=== PATIENT | female | born 1995 | race Hispanic/Latino ===

== ENCOUNTER 2019-08-24 20:16 | Inpatient (IN) ==
--- NOTE | 2019-08-24 20:00 | PROVIDER DOCUMENTATION ---
This chart was entered by Xochilt Stringer Scribe, acting as scribe for Ra Camp MD. HPI-Female /OB/Breast - General Chief Complaint: OB-Active Labor Stated Complaint: 30+ WKS PREG/CRAMP Time Seen by Provider: 08/24/19 19:45 Source: reports: RN/MD, electric motor analyst Allergies/Adverse Reactions: Patient Allergies Allergy/AdvReac Type Severity Reaction Status Date / Time No Known Allergies Allergy Verified 04/21/19 00:54 Home Medications: Home Medication List Medication Instructions Recorded Confirmed Last Taken Type NK [No Home Medications] 04/04/19 04/21/19 Unknown History - History of Present Illness-Female /OB Nature of Presenting Problem: pt is a 23 yohf c/o active labor. pt began cramping 1 hour ago, water broke and is dontae every 3 mins. no care. pt is g2, p1. pt reports her water did break. Does patient report she is ?: Yes Onset/Duration: reports: other (today) Timing: reports: still present Context/Activities at Onset: reports: none Vaginal Bleeding Amount: None Urinary Symptoms: reports: no symptoms Related Symptoms: reports: uterine contractions, abdominal pain Associated Symptoms: reports: denies symptoms - LMP/ History Menstrual Status: currently : 2 Para: 1 Care: none Contractions/Pelvic Pain: reports: moderate Contraction Frequency (every____min): 3 Review of Systems - Adult - REVIEW OF SYSTEMS - ADULT Constitutional: reports: see HPI, other (active labor, contractions every 3 mins starting today.). denies: fever, fatique, night sweats Eyes: reports: no symptoms reported Ears, Nose, Mouth & Throat: reports: no symptoms reported Cardiovascular: reports: no symptoms reported Respiratory: reports: no symptoms reported Gastrointestinal: reports: no symptoms reported Genitourinary: reports: no symptoms reported Musculoskeletal: reports: no symptoms reported Integumentary: reports: no symptoms reported Neurological: reports: no symptoms reported Psychiatric: reports: no symptoms reported Endocrine: reports: no symptoms reported Hematologic/Lymphatic: reports: no symptoms reported Allergic/Immunologic: reports: no symptoms reported All Other Systems: Reviewed and Negative Past History - Adult - PAST MEDICAL HISTORY-ADULT Review of Records: reports: Old Records Reviewed, Nursing Assessment Review, Medications Reviewed, Social history reviewed & non-contributory. Major Childhood Illnesses: reports: denies history Cardiovascular: reports: denies history Respiratory: reports: denies history Gastrointestinal: reports: denies history Obstetrical/Gynecological: reports: denies history Genitourinary: reports: denies history Musculoskeletal: reports: denies history Neurological: reports: denies history Endocrine/Immune: reports: denies history Other Conditions: reports: denies history - PRIOR SURGERIES/PROCEDURES Surgical/Procedure History: reports: none - IMMUNIZATION STATUS Childhood Immunizations: See Nurse Assessment Flu Vaccine: See Nurse Assessment - FAMILY HISTORY Family History: reviewed, not pertinent - SOCIAL HISTORY Smoking: non-smoker Substance Use: none/never Alcohol Use Frequency: never Living Situation: family Physical Exam-General - PHYSICAL EXAM-ADULT Initial Vital Signs Reviewed: Yes - CONSTITUTIONAL General Appearance: appears well, alert, mild distress. negative: slow to respond, obtunded, combative - EYES Eyes: PERRL/EOMI, pink conjunctivae - HEAD, EARS, NOSE, MOUTH & THROAT HENMT: normocephalic/atraumatic, moist mucous membranes - NECK Neck: non-tender, full range of motion, supple, normal inspection - RESPIRATORY Respiratory: chest non-tender, lungs clear, normal breath sounds - CARDIOVASCULAR Cardiovascular: normal peripheral pulses, regular rate, rhythm - GASTROINTESTINAL (ABDOMEN) Abdominal Exam: normal bowel sounds, soft, other (gravid uterus, firm and mild tenderness suprapubic area) - GENITOURINARY Female Genitalia/Pelvic Exam: external exam normal (no meconium, no active bleeding), other (no active bleeding, cervix is dilated). negative: active bleeding, blood Rectal Exam: deferred - MUSCULOSKELETAL Back Exam: normal inspection Extremity: normal range of motion, non-tender, normal inspection - SKIN Integumentary: normal color, normal turgor, warm/dry - NEUROLOGIC Neurologic: grossly normal, no motor/sensory deficits - PSYCHIATRIC Psych/Mental Status: normal mood/affect, normal thought content, normal thought process, oriented x 3 Progress - PLAN OF CARE/RESULTS Progress/Plan/Lab Results: Vital Signs - 8 hr 08/24/19 19:28 Temperature 98.0 F Pulse Rate 69 Respiratory Rate 20 Blood Pressure 117/76 O2 Sat by Pulse Oximetry 100 Orders Category Date Time Status 0.9% Sodium Chloride Inj [Ns] 1,000 ml Med 08/24/19 19:49 Active IV 999 mls/hr - REASSESSMENT Reassessment #1 Time Reassessed: 19:59 Status: unchanged (L&D at [facility] notified, patient taken by [facility]) Departure - Departure Date of Disposition Decision: 08/24/19 Time of Disposition Decision: 19:58 DIAGNOSIS: Active labor at term Disposition: ADMITTED INPATIENT 09 Certified Medical Emergency: Emergent Condition: Stable Referrals and Follow-Ups: None,PCP [Primary Care Provider] - - Critical Care Note This patient required my direct & personal management of CC.: No Attestation - Physician/ JAVI Attestation Patient care was provided by Advanced Practice Provider:: No The physician spent face to face time with patient:: Yes Advanced Practice Provider documentation review:: Supervising physician onsite and consulted in the evaluation and care of this patient. The physician did have a face to face encounter with the patient. This chart was documented by the indicated scribe, (Xochilt Stringer, Lul) and accurately reflects the services I performed and decisions made by me, Ra Camp MD, as attested by the provider's signature.
[~2019-08-24 20:16] MED LIST: NS 1,000 ML IV ONE
[2019-08-24] MEDS: LR 1,000 ML IV SCH (20:30)
[2019-08-24] MEDS ORDERED: NEO-SYNEPHRINE ONE (21:07)
[2019-08-24] MEDS ORDERED: SODIUM CHLORIDE 0.9% 10 ML ONE ×2 (21:07→21:10)
[2019-08-24] MEDS ORDERED: NAROPIN 0.5% ONE (21:10)
[2019-08-24] MEDS ORDERED: ZOFRAN IV PRN (21:20)
[2019-08-24] MEDS ORDERED: PEPCID IV PRN (21:20)
[2019-08-24] MEDS ORDERED: AMPICILLIN 2 GM in NS 100 ML IV ONE (21:20)
[2019-08-24] MEDS ORDERED: TYLENOL PO PRN (21:20)
[2019-08-24] MEDS ORDERED: STADOL IV PRN (21:20)
[2019-08-24] MEDS ORDERED: REGLAN PO PRN (21:20)
[2019-08-24] MEDS ORDERED: KEFZOL 1 GM/D5W 1 GM/50 ML IVPB IV PRN (21:20)
[2019-08-24] MEDS ORDERED: PEPCID PO PRN ×2 (21:20)
[2019-08-24] MEDS ORDERED: XYLOCAINE-MPF 1% INJ PRN ×2 (21:24→22:27)
[2019-08-24] MEDS ORDERED: MINERAL OIL TOP PRN (21:24)
[2019-08-24] MEDS ORDERED: PITOCIN 30 UNITS/NS 30 UNIT/500 ML IV.SOLN IV SCH (21:30)
[2019-08-24] MEDS ORDERED: SODIUM CHLORIDE 0.9% INJ SCH (21:30)
[2019-08-24 21:31] LABS: BASO# 0.06 X1000 (0.0-0.2); BASO% 0.5 % (0.0-0.8); EOS# 0.15 X1000 (0.0-0.7); EOS% 1.2 % (0.0-10.0); HEMATOCRIT 39.1 % (37.0-47.0); HEMOGLOBIN 13.1 g/dL (12.0-16.0); IMM GRAN# 0.05 X1000 (0.0-0.04); IMM GRAN% 0.4 % (0.0-0.5); LYMPH% 22.7 % (20.5-51.1); MCH 28.2 PG (27-31); MCHC 33.5 g/dL (33-37); MCV 84.1 FL (81-99); MONO# 0.58 X1000 (0.11-0.59); MONO% 4.7 % (1.7-9.3); MPV 11.1 FL (7.4-10.4); NEUT# 8.69 X1000 (1.4-6.5); NEUT% 70.5 % (42.2-75.2); PLT 246 X1000 (130-400); RBC 4.65 XMIL (4.2-5.4); RDW 14.3 % (11.5-14.5); WBC 12.33 X1000 (4.8-10.8)
[2019-08-24] MEDS: PITOCIN 30 UNITS/NS 30 UNIT/500 ML IV.SOLN IV SCH (21:50)
[2019-08-24 21:51] LABS: LARGE PLATELETS OCCASIONAL; LYMPHS 28 % (21-51); MONO 4 % (1-9); SEGS 65 % (42-75)
[2019-08-24] MEDS ORDERED: CYTOTEC PO PRN (22:27)
[2019-08-24] MEDS ORDERED: PERI MEDS (DERMOPLAST/NUPERCAINAL/TUCKS) MISC PRN (22:27)
[2019-08-24] MEDS ORDERED: AMBIEN PO PRN (22:27)
[2019-08-24] MEDS ORDERED: BOOSTRIX VACCINE IM ONE (22:27)
[2019-08-24] MEDS ORDERED: HYDROXYZINE IM PRN (22:27)
[2019-08-24] MEDS ORDERED: BENADRYL PO PRN (22:27)
[2019-08-24] MEDS ORDERED: ATARAX PO PRN (22:27)
[2019-08-24] MEDS ORDERED: MINERAL OIL PO PRN (22:27)
[2019-08-24] MEDS ORDERED: PITOCIN IM PRN (22:27)
[2019-08-24] MEDS ORDERED: M-M-R II VACCINE SUBQ ONE (22:27)
[2019-08-24] MEDS ORDERED: PERCOCET-10 PO PRN (22:27)
[2019-08-24] MEDS ORDERED: PERCOCET-5 PO PRN (22:27)
[2019-08-24] MEDS ORDERED: BENADRYL IV PRN (22:27)
[2019-08-24] MEDS ORDERED: PITOCIN 20 UNITS/NS 20 UNITS/1,000 ML IV.SOLN IV SCH (22:30)
[2019-08-25] MEDS ORDERED: AMPICILLIN 1 GM in NS 50 ML IV SCH (01:21)
[2019-08-25 01:26] LABS: URINE SOURCE CATH
[2019-08-25 01:31] LABS: BILIRUBIN URINE NEGATIVE (NEGATIVE); BLOOD URINE NEGATIVE (NEGATIVE); COLOR YELLOW; GLUCOSE URINE NEGATIVE (NEGATIVE); KETONE URINE 10 mg/dL (NEGATIVE); LEUKOCYTES URINE NEGATIVE (NEGATIVE); NITRITE URINE NEGATIVE (NEGATIVE); PROTEIN URINE NEGATIVE (NEGATIVE); TURBIDITY URINE CLEAR (CLEAR); UROBILINOGEN URINE NORMAL (NORMAL)
[2019-08-25 01:51] LABS: UR AMPHETAMINES QUAL NONE DETECTED (NONE DETECT); UR BARBITUATES QUAL NONE DETECTED (NONE DETECT); UR BENZODIAZEPIN QUAL NONE DETECTED (NONE DETECT); UR CANNABINOIDS QUAL NONE DETECTED (NONE DETECT); UR COCAINE QUAL NONE DETECTED (NONE DETECT); UR METHADONE QUAL NONE DETECTED (NONE DETECT); UR OPIATES QUAL NONE DETECTED (NONE DETECT); UR OXYCODONE QUAL NONE DETECTED (NONE DETECT); UR PCP QUAL NONE DETECTED (NONE DETECT)
--- NOTE | 2019-08-25 04:27 | HISTORY AND PHYSICAL ---
CHIEF COMPLAINT: Abdominal pain. HISTORY OF PRESENT ILLNESS: The patient is a 23-year-old G2, P1, 0-0-1 at 38 weeks and 4 days who presented to Labor and Delivery with a complaint of frequent contractions. She denies any leaking fluid. She notes a small amount of vaginal bleeding. She endorses movement. She has had no care this . She is dated by an 18 week ultrasound performed in the emergency room with an estimated due date of 09/03/2019. Upon arrival, cervical exam was 4 cm dilated with a bulging bag of water. Her GBS status is unknown. Estimated due date 09/03/19 by an 18 week ultrasound. OBSTETRIC HISTORY: G1 spontaneous vaginal delivery at 40 weeks, male, 5 pounds and 11 ounces. She denies any complications (2015). G2 is current complicated by no care. GYNECOLOGIC HISTORY: She denies any history of sexually transmitted infections. She states she has had a Pap smear years ago that was normal. She denies any history of abnormal Pap smears. She was not using anything for control prior to . PAST MEDICAL HISTORY: Denies. MEDICATIONS: None. ALLERGIES: No known drug allergies. PAST SURGICAL HISTORY: Denies. SOCIAL HISTORY: She denies tobacco, alcohol, or drug use. FAMILY HISTORY: Denies. PHYSICAL EXAMINATION: VITAL SIGNS: Temperature 98 degrees Fahrenheit, pulse 69, respiratory rate 20, blood pressure 117/76, and O2 saturation 100% on room air. FHT: 120/moderate/+accel/no decel Mcnabb: Q1-2 min LABORATORY DATA: White blood cell count 12.3, hemoglobin 13.1, hematocrit 39.1, and platelets 246,000. labs pending. Blood type O positive. PHYSICAL EXAMINATION: GENERAL: Alert in moderate distress secondary to contraction pain. HEART: Regular rate and rhythm. LUNGS: Clear to auscultation bilaterally. No respiratory distress. ABDOMEN: Soft, gravid. Nontender. PELVIC: Sterile vaginal exam 4 cm with a bulging bag of water. Presentation by bedside ultrasound vertex. EXTREMITIES: No clubbing, cyanosis, or edema. ASSESSMENT AND PLAN: A 23-year-old G2, P1, 0-0-1 at 38 weeks and 4 days by T2 ultrasound presents to Labor and Delivery in labor with no care. 1. Will admit to Labor and Delivery, MF status reassuring 2. The patient may have epidural if she desires. 3. We will obtain labs. 4. We will treat GBS unknown status with ampicillin. 5. Continuous external monitoring and tocometry. 6. Anticipate vaginal delivery. 7. consult for no care [facility]
[2019-08-25] MEDS: MOTRIN PO PRN ×2 (04:30→20:43)
[2019-08-25] MEDS: LR 1,000 ML IV SCH (04:34)
--- NOTE | 2019-08-25 04:49 | OPERATIVE NOTE ---
PROCEDURE DATE: PROCEDURE: Delivery note. DESCRIPTION OF PROCEDURE: A 23-year-old G2, P1, 0-0-1 at 38w4d presented to Labor and Delivery in labor with no care. She underwent a spontaneous vaginal delivery of a vigorous, viable female infant in [place] presentation. The infant's head, shoulders and body delivered with maternal pushing effort without difficulty. Apgars were 9 and 9. She had a second-degree midline perineal laceration that was repaired with 3-0 Vicryl in the usual fashion. Placenta delivered spontaneous and was intact with 3 vessel cord. Labor was spontaneous. Anesthesia epidural. Estimated blood loss was 350 mL. Pediatric nurse in attendance. Mother stable to recovery room. [facility]
[2019-08-25 05:22] LABS: BASO# 0.04 X1000 (0.0-0.2); BASO% 0.2 % (0.0-0.8); EOS# 0.04 X1000 (0.0-0.7); EOS% 0.2 % (0.0-10.0); HEMATOCRIT 36.6 % (37.0-47.0); HEMOGLOBIN 12.3 g/dL (12.0-16.0); IMM GRAN# 0.06 X1000 (0.0-0.04); IMM GRAN% 0.3 % (0.0-0.5); LYMPH# 2.05 X1000 (1.2-3.4); LYMPH% 11.5 % (20.5-51.1); MCH 28.3 PG (27-31); MCHC 33.6 g/dL (33-37); MCV 84.3 FL (81-99); MONO# 1.18 X1000 (0.11-0.59); MONO% 6.6 % (1.7-9.3); MPV 10.9 FL (7.4-10.4); NEUT# 14.47 X1000 (1.4-6.5); NEUT% 81.2 % (42.2-75.2); PLT 258 X1000 (130-400); RBC 4.34 XMIL (4.2-5.4); RDW 14.4 % (11.5-14.5); WBC 17.84 X1000 (4.8-10.8)
--- NOTE | 2019-08-25 07:56 | OB/GYN PROGRESS NOTE ---
- Subjective Pt seen and examined. Currently w/o complaints. Pain well controlled on PO pain meds. Ambulating and urinating w/o difficulty. tolerating regular diet, denies N/V. Reports decreased lochia. +Bottle feeding. Does not desire contraception post delivery OB Physical Exam Vital Signs - 8 hr 08/25/19 04:00 08/25/19 07:23 Temperature 97.9 F 97.8 F Pulse Rate 69 65 Respiratory Rate 18 18 Blood Pressure 113/70 104/56 O2 Sat by Pulse Oximetry 98 98 - CONSTITUTIONAL General Appearance: appears well, alert, no apparent distress - RESPIRATORY Respiratory: lungs clear, normal breath sounds - CARDIOVASCULAR Cardiovascular: regular rate, rhythm - GASTROINTESTINAL (ABDOMEN) Abdominal Exam: soft (FF at umbilicus) - MUSCULOSKELETAL Extremity: non-tender, no calf tenderness Active Medications Generic Name Dose Route Start Last Admin Trade Name Freq PRN Reason Stop Dose Admin Acetaminophen 650 mg 08/24/19 21:20 Tylenol PO Q4-6H PRN PRN Headache Benzocaine 1 each 08/24/19 22:27 Pam Meds (Dermoplast/Nupercainal/Tucks) MISC 3-4XDAY PRN PRN episiotomy/hemorrhoids Butorphanol Tartrate 2 mg 08/24/19 21:20 Stadol IV PRN PRN Pain Diphenhydramine HCl 12.5 mg 08/24/19 22:27 Benadryl IV Q4H PRN PRN Itching Diphenhydramine HCl 25 mg 08/24/19 22:27 Benadryl PO Q4H PRN PRN Itching Famotidine 20 mg 08/24/19 21:20 Pepcid PO PRN PRN for c/s Famotidine 40 mg 08/24/19 21:20 Pepcid PO Q12H PRN PRN GI upset or indigestion Famotidine 20 mg 08/24/19 21:20 Pepcid IV Q12H PRN PRN GI upset or indigestion Hydroxyzine HCl 50 mg 08/24/19 22:27 Atarax PO Q3-4H PRN PRN Nausea Hydroxyzine HCl 50 mg 08/24/19 22:27 Hydroxyzine IM Q3-4H PRN PRN Nausea Ampicillin Sodium 1 gm/ Sodium 50 mls @ 100 mls/hr 08/25/19 01:21 Chloride IV Q4H PRICILLA Cefazolin Sodium/Dextrose 1 gm in 50 mls @ 100 mls/hr 08/24/19 21:20 Kefzol 1 Gm/D5w IV ONCE PRN PRN SECTION Lactated Ringer's 1,000 mls @ 0 mls/hr 08/24/19 21:30 08/25/19 04:34 Lr IV 125 mls/hr .Q0M PRICILLA Administration As Directed Oxytocin/Sodium Chloride 30 unit in 500 mls @ 0 mls/hr 08/24/19 21:30 Pitocin 30 Units/Ns IV .Q0M PRICILLA As Directed Oxytocin/Sodium Chloride 20 units in 1,000 mls @ 0 mls/hr 08/24/19 22:30 Pitocin 20 Units/Ns IV .Q0M PRICILLA As Directed Oxytocin/Sodium Chloride 30 unit in 500 mls @ 500 mls/hr 08/24/19 22:30 08/24/19 21:50 Pitocin 30 Units/Ns IV 500 mls/hr .Q1H PRICILLA Administration Ibuprofen 800 mg 08/24/19 22:27 08/25/19 04:30 Motrin PO 800 mg Q8H PRN PRN Administration cramping Lidocaine HCl 30 ml 08/24/19 21:24 Xylocaine-Mpf 1% INJ PRN PRN At bedside for delivery Lidocaine HCl 30 ml 08/24/19 22:27 Xylocaine-Mpf 1% INJ PRN PRN Perineal repair Metoclopramide HCl 10 mg 08/24/19 21:20 Reglan PO PRN PRN for c/s Mineral Oil 30 ml 08/24/19 21:24 Mineral Oil TOP PRN PRN At bedside for delivery Mineral Oil 30 ml 08/24/19 22:27 Mineral Oil PO PRN PRN Perineal massage Misoprostol 800 microgm 08/24/19 22:27 Cytotec PO PRN PRN Severe bleeding Ondansetron HCl 4 mg 08/24/19 21:20 Zofran IV PRN PRN Nausea Oxycodone/Acetaminophen 1 each 08/24/19 22:27 08/25/19 04:30 Percocet-5 PO 1 each Q3-4H PRN PRN Administration Pain (1-6 on Pain Scale) Oxycodone/Acetaminophen 1 each 08/24/19 22:27 08/25/19 07:30 Percocet-10 PO 1 each Q3-4H PRN PRN Administration Pain (7-10 on Pain Scale) Oxytocin 20 unit 08/24/19 22:27 08/25/19 04:32 Pitocin IM 20 unit PRN PRN Administration Severe bleeding Senna/Docusate Sodium 1 each 08/25/19 21:00 Pericolace PO QHS PRICILLA Sodium Chloride 5 - 10 ml 08/24/19 21:30 Sodium Chloride 0.9% INJ DIRECTED PRICILLA Zolpidem Tartrate 10 mg 08/24/19 22:27 Ambien PO HS PRN PRN Sleep Laboratory Results - last 24 hr 08/24/19 08/24/19 08/24/19 19:45 19:45 22:35 WBC 12.33 H RBC 4.65 Hgb 13.1 Hct 39.1 MCV 84.1 MCH 28.2 MCHC 33.5 RDW Std Deviation 14.3 Plt Count 246 MPV 11.1 H Immature Gran % (Auto) 0.4 Neut % (Auto) 70.5 Lymph % (Auto) 22.7 [place] % (Auto) 4.7 Eos % (Auto) 1.2 Baso % (Auto) 0.5 Immature Gran # (Auto) 0.05 H Neut # (Auto) 8.69 H Lymph # (Auto) 2.80 [place] # (Auto) 0.58 Eos # (Auto) 0.15 Baso # (Auto) 0.06 Segmented Neutrophils 65 Lymphocytes 28 Monocytes 4 Metamyelocytes 1.0 Atypical Lymphocytes 2.0 Large Platelets OCCASIONAL Urine Source Urine Color Urine Turbidity Urine pH Ur Specific [place] Urine Protein Ur Glucose (Stick) Ur Ketones (Stick) Urine Blood Urine Nitrite Urine Bilirubin Urobilinogen Dipstick Urine Leukocytes Urine Opiates Screen NONE DETECTED Ur Oxycodone Screen NONE DETECTED Ur Methadone, Qual NONE DETECTED Ur Barbiturates Screen NONE DETECTED Ur Phencyclidine Scrn NONE DETECTED Ur Amphetamines Screen NONE DETECTED U Benzodiazepines Scrn NONE DETECTED Urine Cocaine Screen NONE DETECTED U Cannabinoids Screen NONE DETECTED RPR NON-REACTIVE 08/24/19 08/25/19 22:35 05:03 WBC 17.84 H RBC 4.34 Hgb 12.3 Hct 36.6 L MCV 84.3 MCH 28.3 MCHC 33.6 RDW Std Deviation 14.4 Plt Count 258 MPV 10.9 H Immature Gran % (Auto) 0.3 Neut % (Auto) 81.2 H Lymph % (Auto) 11.5 L [place] % (Auto) 6.6 Eos % (Auto) 0.2 Baso % (Auto) 0.2 Immature Gran # (Auto) 0.06 H Neut # (Auto) 14.47 H Lymph # (Auto) 2.05 [place] # (Auto) 1.18 H Eos # (Auto) 0.04 Baso # (Auto) 0.04 Segmented Neutrophils Lymphocytes Monocytes Metamyelocytes Atypical Lymphocytes Large Platelets Urine Source CATH Urine Color YELLOW Urine Turbidity CLEAR Urine pH 7.0 Ur Specific [place] 1.010 Urine Protein NEGATIVE Ur Glucose (Stick) NEGATIVE Ur Ketones (Stick) 10 A Urine Blood NEGATIVE Urine Nitrite NEGATIVE Urine Bilirubin NEGATIVE Urobilinogen Dipstick NORMAL Urine Leukocytes NEGATIVE Urine Opiates Screen Ur Oxycodone Screen Ur Methadone, Qual Ur Barbiturates Screen Ur Phencyclidine Scrn Ur Amphetamines Screen U Benzodiazepines Scrn Urine Cocaine Screen U Cannabinoids Screen RPR OB Assessment & Plan (1) Vaginal delivery Status: Acute Plan: 23yo PPD#1 s/p -HD satble -reg diet -oob to ambulation -con't routine pp care -plan for d/c home tomorrow
[2019-08-25 09:16] LABS: HIV ANTIBODY SCREEN SEE COMMENTS
[2019-08-25] MEDS ORDERED: FLU VACCINE IM ONE (10:15)
[2019-08-25] MEDS ORDERED: PERICOLACE PO SCH (21:00)
[2019-08-26] MEDS: PITOCIN 30 UNITS/NS 30 UNIT/500 ML IV.SOLN IV SCH (04:00)
[2019-08-26 08:21] VITALS: BP 105/57
--- NOTE | 2019-08-26 11:01 | DISCHARGE SUMMARY ---
ADMISSION DATE: 08/24/2019 DISCHARGE DATE: The patient underwent a spontaneous vaginal delivery without any problems. She is a G2, P2. Her course has been uneventful. Today, her vital signs are stable. She is afebrile, temperature of 97.3. Her physical exam is unremarkable. Plan is to discharge home with followup with her OB in 4 to 6 weeks. cc: Ami Greenwood MD
[2019-08-26] MEDS: MOTRIN PO PRN (13:23)
== END 2019-08-26 14:35 | disposition home or self-care (01) | DRG 807 ==
LOC: EDSTATUS 20:16 → OPLD 20:16 → LD 20:17
PROVIDERS: ADMIT Student in an Organized Health Care Education/Training Program; ATTEND Student in an Organized Health Care Education/Training Program